=== PATIENT | male | born 1995 | race Caucasian/White ===

== ENCOUNTER 2016-06-19 15:07 | Outpatient (CLI) | payer OTHER ==
[~2016-06-19] VITALS: Ht 182.9 cm; Wt 68.3 kg
[~2016-06-19 15:07] MED LIST: IMURAN 50MG TAB50 MG PO; VITAMIN D1000 IU PO
[2016-06-19 16:21] LABS: BASO % 0.8 % (0.0-2.0); EOS # 0.2 (0.0-0.7); GRAN # 3.5 (1.4-6.5); GRAN % 69.9 % (42.2-75.2); HEMOGLOBIN 16.2 g/dl (13.5-18.0); LYMPH % 18.9 % (20.0-51.0); MEAN CELL VOLUME 92 fl (80.0-100.0); MEAN CORPUSCULAR HEMOGLOBIN 33 pg (27.0-31.0); MEAN CORPUSCULAR HGB CONC 36 g/dl (33.0-37.0); MEAN PLATELET VOLUME 9.1 fl (7.4-10.4); MONO # 0.4 (0.1-0.6); PLATELET COUNT 207 K/mm3 (130-400); RED BLOOD COUNT 4.88 M/mm3 (4.20-5.60); REDCELL DISTRIBUTION WIDTH-CV 13.3 % (11.5-14.5)
[2016-06-19 16:30] LABS: ADJUSTED CALCIUM 9.3 mg/dL (8.4-10.2); ALBUMIN 4.6 gm/dL (3.5-5.0); BILIRUBIN,TOTAL 1.4 mg/dL (0.0-1.0); CALCIUM 9.8 mg/dL (8.4-10.2); CREATININE, serum 0.88 mg/dL (0.66-1.25); POTASSIUM 4.1 mmol/L (3.4-5.0); TOTAL PROTEIN 7.4 gm/dL (6.4-8.2)
[2016-06-19 17:15] VITALS: BP 114/73; PULSE 61; TEMP 98.1
[2016-06-19 17:49] VITALS: BP 118/61; PULSE 94; TEMP 98.2
[2016-06-19 18:45] VITALS: BP 120/58; PULSE 94; TEMP 98.3
[2016-06-19 19:22] VITALS: BP 125/75; PULSE 94; TEMP 98.3
== END 2016-06-19 19:32 | disposition home or self-care (01) ==
LOC: EUO 15:07
PROVIDERS: Internal Medicine
DX: K50.80 Crohn's disease of both small and large intestine without complications (principal)
CPT/HCPCS: J1200; J1745; J2920; J7050

== ENCOUNTER → 2016-08-18 | Outpatient (CLI) | payer OTHER ==
[~2016-08-18] VITALS: Ht 182.9 cm; Wt 70.4 kg
[2016-08-18 16:51] LABS: BASO # 0.1 (0.0-0.2); BASO % 1.1 % (0.0-2.0); EOS # 0.2 (0.0-0.7); EOS % 3.2 % (0-4.0); GRAN # 3.2 (1.4-6.5); GRAN % 66.9 % (42.2-75.2); HEMATOCRIT 45.3 % (42.0-52.0); HEMOGLOBIN 16.2 g/dl (13.5-18.0); LYMPH # 1.1 (1.2-3.4); LYMPH % 22.5 % (20.0-51.0); MEAN CELL VOLUME 91 fl (80.0-100.0); MEAN CORPUSCULAR HEMOGLOBIN 33 pg (27.0-31.0); MEAN CORPUSCULAR HGB CONC 36 g/dl (33.0-37.0); MEAN PLATELET VOLUME 9.1 fl (7.4-10.4); MONO # 0.3 (0.1-0.6); MONO % 5.9 % (1.7-9.3); PLATELET COUNT 237 K/mm3 (130-400); RED BLOOD COUNT 4.96 M/mm3 (4.20-5.60); REDCELL DISTRIBUTION WIDTH-CV 12.5 % (11.5-14.5); WHITE BLOOD COUNT 4.8 K/mm3 (4.8-10.8)
[2016-08-18 17:05] LABS: ADJUSTED CALCIUM 8.9 mg/dL (8.4-10.2); ALBUMIN 4.6 gm/dL (3.5-5.0); CALCIUM 9.4 mg/dL (8.4-10.2); CREATININE, serum 0.88 mg/dL (0.66-1.25); POTASSIUM 3.9 mmol/L (3.4-5.0); TOTAL PROTEIN 7.2 gm/dL (6.4-8.2)
[2016-08-18 17:07] VITALS: BP 125/71; PULSE 101; TEMP 97.8
[2016-08-18 17:49] VITALS: BP 115/69; PULSE 99; TEMP 98.2
[2016-08-18 18:19] VITALS: BP 114/69; PULSE 79; TEMP 97.5
[2016-08-18 18:50] VITALS: BP 128/73; PULSE 102; TEMP 98.4
[2016-08-18 19:22] VITALS: BP 121/69; PULSE 105; TEMP 98.7
[2016-08-18 19:42] VITALS: BP 124/74; PULSE 107; TEMP 98.2
== END ==
LOC: EUO 16:00
PROVIDERS: Family Medicine
DX: K50.80 Crohn's disease of both small and large intestine without complications (principal)
CPT/HCPCS: J1200; J1745; J2920; J7050

== ENCOUNTER → 2016-10-07 | Outpatient (CLI) | payer OTHER ==
[~2016-10-07] VITALS: Ht 182.9 cm; Wt 68.2 kg
[2016-10-07 15:39] LABS: EOS # 0.2 (0.0-0.7); EOS % 3.7 % (0-4.0); GRAN # 2.7 (1.4-6.5); GRAN % 66.7 % (42.2-75.2); HEMATOCRIT 44.9 % (42.0-52.0); HEMOGLOBIN 15.9 g/dl (13.5-18.0); LYMPH # 0.9 (1.2-3.4); LYMPH % 21.3 % (20.0-51.0); MEAN CELL VOLUME 91 fl (80.0-100.0); MEAN CORPUSCULAR HEMOGLOBIN 32 pg (27.0-31.0); MEAN CORPUSCULAR HGB CONC 35 g/dl (33.0-37.0); MEAN PLATELET VOLUME 9.1 fl (7.4-10.4); MONO # 0.3 (0.1-0.6); MONO % 7.1 % (1.7-9.3); PLATELET COUNT 211 K/mm3 (130-400); RED BLOOD COUNT 4.91 M/mm3 (4.20-5.60); REDCELL DISTRIBUTION WIDTH-CV 13.2 % (11.5-14.5); WHITE BLOOD COUNT 4.1 K/mm3 (4.8-10.8)
[2016-10-07 15:47] LABS: ADJUSTED CALCIUM 8.7 mg/dL (8.4-10.2); ALBUMIN 4.5 gm/dL (3.5-5.0); BILIRUBIN,TOTAL 1.2 mg/dL (0.0-1.0); CALCIUM 9.1 mg/dL (8.4-10.2); CREATININE, serum 0.86 mg/dL (0.66-1.25); TOTAL PROTEIN 7.2 gm/dL (6.4-8.2)
[2016-10-07 16:20] VITALS: BP 120/68; PULSE 85; TEMP 98.4
[2016-10-07 16:50] VITALS: BP 121/79; PULSE 91; TEMP 98.3
[2016-10-07 17:20] VITALS: BP 122/71; PULSE 94; TEMP 98.1
[2016-10-07 17:50] VITALS: BP 131/77; PULSE 93; TEMP 98.1
[2016-10-07 18:20] VITALS: BP 138/77; PULSE 90; TEMP 98
== END ==
LOC: EUO 15:00
PROVIDERS: Internal Medicine
DX: K50.00 Crohn's disease of small intestine without complications (principal)
CPT/HCPCS: J1200; J1745; J2920; J7050